=== PATIENT | female | born 1965 | race Caucasian/White ===

== ENCOUNTER 2016-11-17 08:40 | Emergency (ER) | payer BC ==
[2016-11-17 09:03] VITALS: BP 116/82
--- NOTE | 2016-11-17 09:43 | UC ---
Throat Pain/Nasal Lan HPI - HPI Summary HPI Summary: FIVE DAYS OF COUGH, CONGESTION, SORE THROAT, FACIAL PRESSURE. - History of Current Complaint Chief Complaint: UCRespiratory Stated Complaint: CHEST CONGESTION COUGH SORE THROAT Time Seen by Provider: 11/17/16 09:03 Hx Obtained From: Patient Hx Last Menstrual Period: does have r/t bcp Onset/Duration: Gradual Onset, Lasting Weeks, Still Present Severity: Moderate Cough: Nonproductive Associated Signs & Symptoms: Positive: Hoarseness, Sinus Discomfort, Nasal Discharge - Epiglottits Risk Factors Epiglottis Risk Factors: Negative - Allergies/Home Medications Allergies/Adverse Reactions: Allergies Allergy/AdvReac Type Severity Reaction Status Date / Time Penicillins Allergy Hives Verified 01/04/16 10:26 PMH/Surg Hx/FS Hx/Imm Hx Previously Healthy: Yes Endocrine History Of: Denies: Diabetes, Thyroid Disease Cardiovascular History Of: Denies: Cardiac Disorders, Hypertension Respiratory History Of: Denies: COPD, Asthma GI/ History Of: Denies: Ulcer Cancer History Of: Denies: Breast Cancer - Surgical History Surgical History: Yes Surgery Procedure, Year, and Place: tubal - Family History Known Family History: Positive: None, Hypertension - Social History Occupation: Retired Lives: With Family Alcohol Use: None Substance Use Type: None Smoking Status (MU): Never Smoked Tobacco Review of Systems Constitutional: Negative Skin: Negative Eyes: Negative ENT: Ear Ache, Nasal Discharge Respiratory: Cough Cardiovascular: Negative Gastrointestinal: Negative Genitourinary: Negative Motor: Negative Neurovascular: Negative Musculoskeletal: Negative Neurological: Negative Psychological: Negative All Other Systems Reviewed And Are Negative: Yes Physical Exam Triage Information Reviewed: Yes Appearance: Well-Appearing, No Pain Distress, Well-Nourished Vital Signs: Initial Vital Signs Temp 98.9 F 11/17/16 08:58 Pulse 98 11/17/16 08:58 Resp 19 11/17/16 08:58 BP 116/82 11/17/16 08:58 Pulse Ox 100 11/17/16 08:58 Vital Signs Reviewed: Yes Eye Exam: Normal ENT: Positive: Hearing grossly normal, Pharynx normal, TM bulging, TM dull Dental Exam: Normal Neck exam: Normal Neck: Positive: Supple, Nontender, No Lymphadenopathy Respiratory Exam: Normal Respiratory: Positive: Chest non-tender, Lungs clear, Normal breath sounds, No respiratory distress, No accessory muscle use Cardiovascular Exam: Normal Cardiovascular: Positive: RRR, No Murmur Abdominal Exam: Normal Abdomen Description: Positive: Nontender, No Organomegaly Musculoskeletal Exam: Normal Neurological Exam: Normal Psychological Exam: Normal Psychological: Positive: Normal Response To Family Skin Exam: Normal Throat Pain/Nasal Course/Dx - Differential Dx/Diagnosis Differential Diagnosis/HQI/PQRI: Pharyngitis, Sinusitis, URI Provider Diagnoses: SINUSITIS Discharge - Discharge Plan Condition: Stable Disposition: HOME Prescriptions: Benzonatate CAP* [Tessalon CAP*] 100 mg PO TID PRN #15 cap PRN Reason: Cough DOXYcycline CAP(*) [DOXYcycline 100MG CAP(*)] 100 mg PO BID #20 cap Patient Education Materials: Sinusitis (ED) Referrals: Bertram Cleveland MD [Primary Care Provider] -
== END 2016-11-17 09:52 | disposition home or self-care (01) ==
LOC: UCEAST 08:40
DX: J32.9 Chronic sinusitis, unspecified (principal); Z88.0 Allergy status to penicillin
CPT/HCPCS: 99212; G0463

== ENCOUNTER 2017-04-09 16:34 | Emergency (ER) | payer BC ==
[2017-04-09] MEDS ORDERED: Acetaminophen TAB* 325 MG PO ONE (16:45)
[2017-04-09 16:47] VITALS: BP 155/96
[2017-04-09] MEDS ORDERED: NS 0.9% 1000 ML* 1,000 ML IV ONE (16:47)
--- NOTE | 2017-04-09 16:57 | UC ---
HPI Febrile Illness - HPI Summary HPI Summary: 51 year old female presents with high fever, severe neck pain, and chills. I will send her to the ER to rule out meningitis. - History of Current Complaint Chief Complaint: UCHeadache Time Seen by Provider: 04/09/17 16:42 - Allergy/Home Medications Allergies/Adverse Reactions: Allergies Allergy/AdvReac Type Severity Reaction Status Date / Time Penicillins Allergy Hives Verified 04/09/17 16:35 Home Medications: Home Medications DOXYcycline CAP(*) [DOXYcycline 100MG CAP(*)] 100 mg PO BID 04/09/17 [History Confirmed 04/09/17] PMH/Surg Hx/FS Hx/Imm Hx Endocrine/Hematology History: Denies: Hx Diabetes, Hx Thyroid Disease Cardiovascular History: Denies: Hx Hypertension Respiratory History: Denies: Hx Asthma, Hx Chronic Obstructive Pulmonary Disease (COPD) GI History: Denies: Hx Ulcer - Cancer History Hx Chemotherapy: No Hx Radiation Therapy: No - Surgical History Surgery Procedure, Year, and Place: tubal Infectious Disease History: No Infectious Disease History: Denies: Hx Clostridium Difficile, Hx Hepatitis, Hx Human Immunodeficiency Virus (HIV), History Other Infectious Disease, Traveled Outside the [place] in Last 30 Days - Family History Known Family History: Positive: None, Hypertension - Social History Alcohol Use: None Substance Use Type: Reports: None Smoking Status (MU): Never Smoked Tobacco Review of Systems Constitutional: Fever, Chills Skin: Negative Eyes: Negative ENT: Negative Respiratory: Negative Cardiovascular: Negative Gastrointestinal: Negative Genitourinary: Negative Motor: Negative Neurovascular: Negative Musculoskeletal: Negative Neurological: Negative Psychological: Negative All Other Systems Reviewed And Are Negative: Yes Physical Exam Triage Information Reviewed: Yes Appearance: Ill-Appearing, Pain Distress Vital Signs: Initial Vital Signs Temp 40.5 C 04/09/17 16:38 Pulse 108 04/09/17 16:38 Resp 20 04/09/17 16:38 BP 155/96 04/09/17 16:38 Pulse Ox 100 04/09/17 16:38 Vital Signs Reviewed: Yes Eye Exam: Normal ENT Exam: Normal Dental Exam: Normal Neck: Positive: Nuchal Rigidity, Tenderness @ Respiratory Exam: Normal Cardiovascular Exam: Normal Abdominal Exam: Normal Musculoskeletal Exam: Normal Neurological Exam: Normal Psychological Exam: Normal Skin Exam: Normal Course/Dx - Diagnoses Clinic Provider Diagnoses: FEVER. NECK PAIN. CHILLS Discharge - Discharge Plan Condition: Critical Disposition: TRANS HIGHER LVL OF CARE FAC Referrals: Bertram Cleveland MD [Primary Care Provider] -
== END 2017-04-09 17:05 | disposition short-term general hospital (02) ==
LOC: UCEAST 16:34
DX: R50.9 Fever, unspecified (principal); M54.2 Cervicalgia; R68.83 Chills (without fever)
CPT/HCPCS: 96360; 99213; A9270-GY; G0463

== ENCOUNTER 2017-04-09 17:22 | Emergency (ER) | payer BC ==
[2017-04-09] MEDS ORDERED: NS 0.9% 1000 ML* 1,000 ML IV ONE (19:23)
[2017-04-09] MEDS ORDERED: Ketorolac INJ* 30 MG/ML 1 ML VIAL IV PUSH ONE (19:25)
[2017-04-09 19:50] LABS: Hematocrit 38 % (35-47); Hemoglobin 13.1 g/dl (12.0-16.0); Mean Corpuscular HGB Conc 34 g/dl (31-36); Mean Corpuscular Hemoglobin 31 pg (27-31); Mean Corpuscular Volume 90 fL (80-97); Mean Platelet Volume 9 um3 (7.4-10.4); Red Blood Count 4.27 10^6/ul (4.0-5.4); Red Cell Distribution Width 12 % (10.5-15); White Blood Count 6.1 10^3/ul (3.5-10.8)
[2017-04-09 20:06] LABS: Albumin 3.6 g/dL (3.2-5.2); BUN/Creatinine Ratio 15.1 (8-20); Calcium 8.7 mg/dL (8.6-10.3); EGFR African American 89.5 (>60); EGFR Non-African American 69.6 (>60); Globulin 2.9 g/dL (2-4); Magnesium 1.8 mg/dL (1.9-2.7); Potassium 3.8 mmol/L (3.5-5.0); Total Bilirubin 0.5 mg/dL (0.2-1.0); Total Protein 6.5 g/dL (6.4-8.9)
--- NOTE | 2017-04-09 20:12 | ED ---
Quinn Zapata Rebecca, scribed for Rodríguez Starks MD on 04/09/17 at 1915 . Complex/Multi-Sys Presentation - HPI Summary HPI Summary: Pt is a 51 y/o F BIBA from [facility] c/o ROSSI, fever and neck and back pain. Sx began 2 days ago and have been constant since onset. Fever was 102.5 yesterday, at its highest. Pain is currently severe, ranked 9/10 and described as being in her joints. Sx aggravated by nothing, slightly alleviated by Ibuprofen (one dose earlier today). Pt was seen by her PCP yesterday who prescribed Doxycycline , of which she has taken 2 doses, for concerns over Lyme Disease. Reports possible tick exposure 2 days ago, stating there was "something on my toe and I flicked it off." - History Of Current Complaint Chief Complaint: EDGeneral Time Seen by Provider: 04/09/17 19:12 Hx Obtained From: Patient Onset/Duration: Lasting Days - 2 days, Still Present Timing: Constant Severity Initially: Severe Location: Pain At: - ROSSI, neck and back pain Aggravating Factor(s): Nothing Alleviating Factor(s): Ibuprofen Associated Signs And Symptoms: Positive: Fever - Allergies/Home Medications Allergies/Adverse Reactions: Allergies Allergy/AdvReac Type Severity Reaction Status Date / Time Penicillins Allergy Hives Verified 04/09/17 16:35 PMH/Surg Hx/FS Hx/Imm Hx Endocrine/Hematology History: Denies: Hx Diabetes, Hx Thyroid Disease Cardiovascular History: Denies: Hx Hypertension Respiratory History: Denies: Hx Asthma, Hx Chronic Obstructive Pulmonary Disease (COPD) GI History: Denies: Hx Ulcer - Cancer History Hx Chemotherapy: No Hx Radiation Therapy: No - Surgical History Surgery Procedure, Year, and Place: tubal Infectious Disease History: No Infectious Disease History: Denies: Hx Clostridium Difficile, Hx Hepatitis, Hx Human Immunodeficiency Virus (HIV), History Other Infectious Disease, Traveled Outside the [place] in Last 30 Days - Family History Known Family History: Positive: Hypertension - Social History Alcohol Use: None Substance Use Type: Reports: None Smoking Status (MU): Never Smoked Tobacco Review of Systems Positive: Fever Positive: Arthralgia - Back and neck pain Positive: Headache All Other Systems Reviewed And Are Negative: Yes Physical Exam Triage Information Reviewed: Yes Vital Signs On Initial Exam: Initial Vitals Temp Pulse Resp BP Pulse Ox 103.2 F 108 20 142/78 100 04/09/17 17:30 04/09/17 17:30 04/09/17 17:30 04/09/17 17:30 04/09/17 17:30 Vital Signs Reviewed: Yes Appearance: Positive: Well-Appearing, No Pain Distress Skin: Positive: Warm Head/Face: Positive: Normal Head/Face Inspection Eyes: Positive: MICHAEL ENT: Positive: Pharynx normal, TMs normal Neck: Positive: Supple, Nontender. Negative: Nuchal Rigidity Respiratory/Lung Sounds: Positive: Clear to Auscultation, Breath Sounds Present Cardiovascular: Positive: RRR. Negative: Murmur Abdomen Description: Positive: Nontender, Soft Bowel Sounds: Positive: Present Musculoskeletal: Positive: Strength/ROM Intact Neurological: Positive: Sensory/Motor Intact, Alert, Oriented to Person Place, Time, Normal Gait Psychiatric: Positive: Affect/Mood Appropriate - Josue Coma Scale Coma Scale Total: 15 Diagnostics - Vital Signs Vital Signs Temp Pulse Resp BP Pulse Ox 04/09/17 17:30 103.2 F 108 20 142/78 100 - Laboratory Lab Results: Lab Results 04/09/17 04/09/17 04/09/17 Range/Units 19:40 19:40 19:40 WBC 6.1 (3.5-10.8) 10^3/ul RBC 4.27 (4.0-5.4) 10^6/ul Hgb 13.1 (12.0-16.0) g/dl Hct 38 (35-47) % MCV 90 (80-97) fL MCH 31 (27-31) pg MCHC 34 (31-36) g/dl RDW 12 (10.5-15) % Plt Count 163 (150-450) 10^3/ul MPV 9 (7.4-10.4) um3 Neut % (Auto) 70.9 (38-83) % Lymph % (Auto) 19.5 L (25-47) % Toole % (Auto) 9.1 H (1-9) % Eos % (Auto) 0 (0-6) % Baso % (Auto) 0.5 (0-2) % Absolute Neuts (auto) 4.4 (1.5-7.7) 10^3/ul Absolute Lymphs (auto) 1.2 (1.0-4.8) 10^3/ul Absolute Monos (auto) 0.6 (0-0.8) 10^3/ul Absolute Eos (auto) 0 (0-0.6) 10^3/ul Absolute Basos (auto) 0 (0-0.2) 10^3/ul Absolute Nucleated RBC 0.01 10^3/ul Nucleated RBC % 0.1 Sodium 132 L (133-145) mmol/L Potassium 3.8 (3.5-5.0) mmol/L Chloride 102 (101-111) mmol/L Carbon Dioxide 23 (22-32) mmol/L Anion Gap 7 (2-11) mmol/L BUN 13 (6-24) mg/dL Creatinine 0.86 (0.51-0.95) mg/dL Est GFR ( Amer) 89.5 (>60) Est GFR (Non-Af Amer) 69.6 (>60) BUN/Creatinine Ratio 15.1 (8-20) Glucose 108 H (70-100) mg/dL Lactic Acid 1.2 (0.5-2.0) mmol/L Calcium 8.7 (8.6-10.3) mg/dL Magnesium 1.8 L (1.9-2.7) mg/dL Total Bilirubin 0.50 (0.2-1.0) mg/dL AST 41 H (13-39) U/L ALT 47 (7-52) U/L Alkaline Phosphatase 66 (34-104) U/L Total Protein 6.5 (6.4-8.9) g/dL Albumin 3.6 (3.2-5.2) g/dL Globulin 2.9 (2-4) g/dL Albumin/Globulin Ratio 1.2 (1-3) Result Diagrams: 04/09/17 19:40 04/09/17 19:40 Lab Statement: Any lab studies that have been ordered have been reviewed, and results considered in the medical decision making process. - EKG 1944 Cardiac Rate: NL - 95 bpm EKG Rhythm: Sinus Rhythm EKG Interpretation: Generalized low voltages Re-Evaluation - Re-Evaluation First Eval Re-Evaluation Time: 20:55 Change: Improved Comment: Discussed labs, UA and D/C plan. Complex Multi-Symp Course/Dx Assessment/Plan: Pt is a 51 y/o F BIBA from [facility] c/o ROSSI, fever and neck and back pain for 2 days. Fever was 102.5 yesterday, at its highest. Pain is currently severe, ranked 9/10 and described as being in her joints. Sx slightly alleviated by Ibuprofen (one dose earlier today). Pt was seen by her PCP yesterday who prescribed Doxycycline, of which she has taken 2 doses, for concerns over Lyme Disease. Reports possible tick exposure 2 days ago, stating there was "something on my toe and I flicked it off." EKG reveals no acute findings. UA reveals color: yellow, appearance: cloudy, protein: 1+, ketones: trace, RBC: 1+, squamous epithelial cells: present, bacteria: absent and negative for blood, nitrate, bilirubin and leukocyte esterase. She received Ns and Toradol IV in the course of the ED. Pt will be D/C to home with Dx of viral syndrome. She understands and agrees. Patient's medications reviewed this visit. - Diagnoses Provider Diagnoses: Viral syndrome Discharge - Discharge Plan Condition: Improved Disposition: HOME Patient Education Materials: Viral Syndrome (ED) Referrals: Bertram Cleveland MD [Primary Care Provider] - 3 Days The documentation as recorded by the Quinn portillo Rebecca accurately reflects the service I personally performed and the decisions made by me, Rodríguez Starks MD.
[2017-04-09 20:46] LABS: Urine Bacteria Absent (Absent); Urine Bilirubin Negative (Negative); Urine Glucose Negative (Negative); Urine Nitrite Negative (Negative)
[2017-04-09 21:14] VITALS: BP 119/68
== END 2017-04-09 21:12 | disposition home or self-care (01) ==
LOC: ED 17:22
DX: B34.9 Viral infection, unspecified (principal); R51 Headache; R50.9 Fever, unspecified; M54.9 Dorsalgia, unspecified
CPT/HCPCS: 36415; 80053; 81003; 81015; 83605; 83735; 85025; 86618; 93005; 96374; 99283; J1885

== ENCOUNTER 2017-09-15 12:57 | Day surgery (SDC) | payer BC ==
--- NOTE | 2017-09-12 19:56 | HP ---
HISTORY AND PHYSICAL: DATE OF ADMISSION/SURGERY: 09/15/17 DATE OF OFFICE VISIT: 09/12/17 ATTENDING PROVIDER: Lucinda Storey MD * (DICTATED BY JOSTIN NICE) HISTORY OF PRESENT ILLNESS: Ms. Aldana is a 51-year-old female who reports 3 months of right knee pain that is an 8/10. She started exercising in May to [employer] when she started experiencing clicking, catching, and locking along the medial joint line of her knee. The pain is increased with deep bending, side stepping, and pivoting. The pain is increased with prolonged standing. She tried some physical therapy as well as an injection into the knee joint. She has tried Tylenol and Advil as well. The patient was also tested positive in April for Lyme disease and underwent 2 weeks of Cipro. She had an allergic reaction to doxycycline. She states that the meloxicam helped to relieve the pain for the 2 weeks that she took it, but it is now back. PAST MEDICAL HISTORY: 1. Lyme disease. 2. Migraines. PAST SURGICAL HISTORY: 1. Tubal ligation. MEDICATIONS: 1. Amitriptyline hydrochloric acid 1 by mouth every night at bedtime. 2. Aviane 0.1/20 mg/mcg 1 by mouth every day. 3. Ibuprofen 200 mg 1 twice a day as needed. ALLERGIES: 1. PENICILLIN. 2. DOXYCYCLINE. FAMILY HISTORY: Father, still alive, history of stroke. 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 She lives with her spouse. No tobacco, alcohol, or recreational drug use. Normally very active, normally an independent ambulator. REVIEW OF SYSTEMS: General: The patient denies any fevers, chills, or night sweats. No known anesthesia problems. HEENT: The patient denies any headaches , lightheadedness, or syncopal episodes. Cardiothoracic: The patient denies any chest pain, heart palpitations, or edema. Pulmonary: The patient denies any shortness of breath with exertion, chronic cough, COPD. The patient denies any nausea, vomiting, diarrhea, or constipation. The patient denies any nocturia, urinary frequency, or urinary urgency. MSK: The patient admits to right knee pain. The patient denies any chronic or intermittent back pain. Neuro: The patient denies any paresthesias, numbness, seizure. Integument: The patient denies any abrasions, lesions, or rashes. PHYSICAL EXAMINATION GENERAL: The patient is alert and oriented x3 with appropriate mood and affect , appropriate dress and hygiene. Slightly antalgic gait, is favoring the right knee. HEENT: Normocephalic, atraumatic. Hearing and vision grossly intact. PULMONARY: Lungs are clear to auscultation bilaterally. No wheezes, rales, or rhonchi. CARDIO: Regular rate and rhythm. Normal S1 and S2. No appreciable S3 or S4. No murmurs, rubs, or gallops. MSK: Right lower extremity, Inspection of right lower extremity reveals no erythema, no ecchymosis. Skin is warm, dry, intact. Range of motion is 0 to 115 degrees of flexion with pain globally at both terminals. MCL stress testing at 30 degrees causes pain. MCL stress testing at 0 degrees causes no pain. Negative LCL stress testing. Negative anterior and posterior drawer test. Positive medial joint line tenderness to palpation. Negative lateral joint line tenderness to palpation. Positive patellofemoral tenderness to palpation. Neurovascularly intact distally with a 2+ dorsalis pedis pulse. IMAGING: MRI was obtained and reviewed. MRI from 09/05/17 was obtained and reviewed. There is a partial peripheral extrusion of the body of the medial meniscus, which leads me to believe that a meniscal tear may be present there. There is high-grade osteoarthritis and full-thickness degeneration of the medial joint compartment. ASSESSMENT: Right knee medial meniscus tear. PLAN: Right knee arthroscopic partial medial meniscectomy, possible chondroplasty, possible synovectomy to be done on 09/15/17. The patient will return in 10 to 14 days postoperatively for suture removal and followup. A prescription for Percocet 5/325 has been sent to the pharmacy record to be used for postoperative pain management. The risks, benefits, and complications of surgery were discussed with the patient today and she understood these. JOSTIN NICE [id number]/[facility] #: [id number] NAMRATA
[~2017-09-15 12:57] MED LIST: Buffered Lidocaine 0.9% SYRIN* 5 ML/SYR SYRINGE INTRADERM ONE; Famotidine IV* 10 MG/ML 2 ML (20 mg) IV ONE; Midazolam* 1 MG/ML 2 ML VIAL (2 MG) ONE; fentaNYL* 50 MCG/ML 2 ML VIAL (100 MCG VIAL) ONE
[2017-09-15] MEDS ORDERED: Clindamycin 900 MG IVPREMIX(* 900 MG/50 ML SDV IV ONE (13:07)
[2017-09-15] MEDS ORDERED: Buffered Lidocaine 0.9% SYRIN* 5 ML/SYR SYRINGE ONE (13:07)
[2017-09-15] MEDS ORDERED: Famotidine IV* 10 MG/ML 2 ML (20 mg) ONE (13:07)
[2017-09-15] MEDS ORDERED: methylPREDNISolone ACETATE 40* 40 MG/ML 1 ML VIAL ONE (13:19)
[2017-09-15] MEDS ORDERED: Bupivacaine 0.25% SDV* 30 ML ONE (13:19)
[2017-09-15] MEDS ORDERED: EPINEPHRINE 1 MG/ML 1 ML VIAL ONE (13:19)
[2017-09-15] MEDS ORDERED: Propofol* 10 MG/ML 20 ML BTL IV PUSH ONE (14:05)
[2017-09-15] MEDS ORDERED: Ketorolac INJ* 30 MG/ML 1 ML VIAL ONE (14:05)
[2017-09-15] MEDS ORDERED: Ondansetron INJ* 2 MG/ML VIAL ONE (14:05)
[2017-09-15] MEDS ORDERED: Lidocaine 2% PF * 5 ML VIAL ONE (14:05)
[2017-09-15] MEDS ORDERED: DiMENhydriNATE IV* 50 MG/ML VIAL ONE (14:05)
[2017-09-15] MEDS ORDERED: Dexamethasone IV* 4 MG/ML 1 ML (4 MG) ONE (14:05)
[2017-09-15] MEDS ORDERED: fentaNYL* 50 MCG/ML 2 ML VIAL (100 MCG VIAL) ONE (14:20)
[2017-09-15] MEDS ORDERED: DiMENhydriNATE IV* 50 MG/ML VIAL IV PUSH PRN (14:27)
[2017-09-15] MEDS ORDERED: oxyCODONE TAB* 5 MG TAB PO PRN (14:27)
[2017-09-15] MEDS ORDERED: HYDROmorphone INJ* 1 MG/ML CARPUJECT SYRINGE IV PRN (14:27)
[2017-09-15] MEDS ORDERED: Acetaminophen TAB* 325 MG PO PRN (14:27)
[2017-09-15] MEDS ORDERED: oxyCODONE TAB* 5 MG TAB ONE (15:17)
[2017-09-15] MEDS ORDERED: Acetaminophen TAB* 325 MG ONE (15:17)
[2017-09-15 15:58] VITALS: BP 142/73
--- NOTE | 2017-09-16 02:49 | OP ---
OPERATIVE REPORT: DATE OF OPERATION: 09/15/17 DATE OF : 65 SURGEON: Lucinda Storey MD REMOVABLE PROSTHODONTIST: JOSTIN San Ms. Hopkins did help throughout the procedure with preparation of the leg, wound retraction, manipul ation of the knee, and wound closure. ANESTHESIOLOGIST: Nadine Kaplan MD ANESTHESIA: General. PRE-OP DIAGNOSES: Right knee pain and medial meniscal tear. POST-OP DIAGNOSES: Right knee medial meniscal tear and osteoarthritis. OPERATIVE PROCEDURE: Right knee arthroscopy with partial medial meniscectomy and medial chondroplast y. INDICATIONS: Ms. Aldana is a 51- year-old female, who started exercising regularly in mid May and developed mechanical symptoms in her right knee. She developed symptoms consistent with a menisc al tear and severe pain. MRI confirmed a medial meniscal tear. Plain radiographs showed some mild d egenerative changes. The patient failed conservative treatment and elected to undergo right knee art hroscopy. She understood partial meniscectomy would not help her arthritic pain, but wished to proce ed due to continued pain and failure of conservative treatment. Informed consent was obtained from t he patient. She understood the risks of surgery, included but were not limited to, bleeding, infecti on, damage to nearby structures, continued pain, need for further surgery, retear of the meniscus, st roke, heart attack, blood clot, and . She wished to proceed. COMPLICATIONS: None. ESTIMATED BLOOD LOSS: Less than 25 cc. SPECIMEN: None. INTRAOPERATIVE FINDINGS: Intraoperatively, the patient was noted to have a linear- type tear involvi ng the posterior third of the medial meniscus. This did displace anteriorly. This involved the whit e-red zone. The patient was noted to have grade 3 Outerbridge cartilage changes in the patellofemora l compartment and grade 3 and 4 Outerbridge cartilage changes along the medial compartment of the kne e with exposed subchondral bone along the weightbearing portion of the medial femoral condyle. DESCRIPTION OF PROCEDURE: Ms. Aldana was identified in the preanesthesia unit. Informed consent was obtained from the patient. Right lower extremity was marked as the correct operative side. The sandee ent was taken to the operating room and placed under general anesthesia. Right lower extremity was p repped and draped in the usual sterile fashion. Preop time-out was made to correctly identify the pa tient's side and site. Appropriate perioperative antibiotics were given within 1 hour of incision. A 0.5-cm anterolateral portal incision was made with a 15 blade and carried down through the capsule. Trocar was introduced. As soon as the light and water sources were turned on, there was immediate visualization of the knee joint. A tour was performed. The suprapatellar pouch had no obvious abnor mality. Patellofemoral compartment showed grade 3 patellar cartilage fissuring and degeneration invol ving the medial and lateral patellar facet. The medial gutter showed no obvious loose body or plica. Medial compartment showed exposed subchondral bone along the medial femoral condyle with significan t loss of cartilage; this was grade 3 and 4 Outerbridge cartilage changes. Posterior medial meniscus appeared to have a tear with anteriorly displaced flap. ACL and PCL were intact. Knee was placed i n the figure-of-4 position. No significant degenerative changes in the lateral compartment. No obvi ous meniscal tear. Lateral gutter showed no obvious abnormality. Under direct visualization, a medial portal incision was made. Shaver and radiofrequency ablation wa nd were used to excise some inflammatory tissue along the anterior joint line. The probe was introdu heladio and a second tour of the knee joint was performed. No additional findings were noted. Medial me niscal tear was a linear-type tear involving the white-red zone. This involved the posterior one- th ird of the meniscus. This tear did displace anteriorly. Straight biter and shaver were used to perf orm partial medial meniscectomy mainly in the white-red zone. Radiofrequency ablation wand was then used to smooth the edge of the meniscus. Some cartilage flap was carefully smoothed with the radiofr equency ablation wand along the medial femoral condyle. The knee was copiously irrigated with sterile saline. Instruments were all carefully removed. The i ncisions were closed using interrupted 3-0 nylon suture. Intraarticular injection of 80 mg of Depo-Me drol and 6 cc of 0.25% Marcaine was placed in the knee joint. The patient's incisions were covered w ith Xeroform, 4x4s, and Webril. Emir wrap and cold pack were placed over this. The patient's anesthe adan was reversed without difficulty. She was taken to the PACU in stable condition. Intended weight bearing will be weightbearing as tolerated. Intended DVT prophylaxis will be aspirin for 2 weeks. T he patient will follow up in clinic in 2 weeks' time. [id number]/[facility] #: [id number]
== END 2017-09-15 16:25 | disposition home or self-care (01) ==
LOC: OR 12:57
PROVIDERS: ATTEND Orthopaedic Surgery Adult Reconstructive Orthopaedic Surgery
DX: S83.241A Other tear of medial meniscus, current injury, right knee, initial encounter (principal); M17.11 Unilateral primary osteoarthritis, right knee; Z88.0 Allergy status to penicillin; Z88.8 Allergy status to other drugs, medicaments and biological substances; X58.XXXA Exposure to other specified factors, initial encounter
CPT/HCPCS: 81025; A9270-GY; J1030; J1100; J1240; J1885; J2250; J2405; J2704; J3010

== ENCOUNTER 2018-12-08 07:21 | Emergency (ER) | payer BC ==
[2018-12-08 07:44] VITALS: BP 129/84
--- NOTE | 2018-12-08 09:20 | UC ---
Ear Complaint HPI - HPI Summary HPI Summary: HAS HAD LEFT EAR PAIN FOR A FEW WEEKS, YESTERDAY RIGHT EAR STARTED TO HURT. NO FEVER OR URI SX. NO HEARING LOSS OR DISCHARGE FROM THE EAR. - History of Current Complaint Chief Complaint: UCEar Stated Complaint: EAR PAIN Time Seen by Provider: 12/08/18 08:39 Hx Obtained From: Patient Hx Last Menstrual Period: heel shaper Onset/Duration: Gradual Onset, Lasting Weeks, Still Present Severity Initially: Moderate Severity Currently: Moderate Pain Intensity: 3 Pain Scale Used: 0-10 Numeric Aggravating Factors: Nothing Alleviating Factors: Nothing Associated Signs/Symptoms: Negative: Discharge, Hearing Loss, URI Symptoms - Allergies/Home Medications Allergies/Adverse Reactions: Allergies Allergy/AdvReac Type Severity Reaction Status Date / Time amoxicillin [From Augmentin] Allergy Hives Verified 12/08/18 07:46 clavulanic acid Allergy Hives Verified 12/08/18 07:46 [From Augmentin] doxycycline Allergy Fever Verified 12/08/18 07:46 Penicillins Allergy Hives Verified 12/08/18 07:46 PMH/Surg Hx/FS Hx/Imm Hx Previously Healthy: Yes - Surgical History Surgical History: Yes Surgery Procedure, Year, and Place: tubal CONN 1993. Rt knee 2016 - Family History Known Family History: Positive: Hypertension - Social History Alcohol Use: None Substance Use Type: None Smoking Status (MU): Never Smoked Tobacco Review of Systems All Other Systems Reviewed And Are Negative: Yes Constitutional: Positive: Negative Eyes: Positive: Negative ENT: Positive: Ear Ache Respiratory: Positive: Negative Cardiovascular: Positive: Negative Gastrointestinal: Positive: Negative Physical Exam Triage Information Reviewed: Yes Appearance: Well-Appearing, No Pain Distress, Well-Nourished Vital Signs: Initial Vital Signs Temp 98.8 F 12/08/18 07:39 Pulse 88 12/08/18 07:39 Resp 16 12/08/18 07:39 BP 129/84 12/08/18 07:39 Pulse Ox 100 12/08/18 07:39 Vital Signs Reviewed: Yes Eyes: Positive: Conjunctiva Clear ENT: Positive: Hearing grossly normal, Pharynx normal, TMs normal Neck: Positive: Supple, Nontender, No Lymphadenopathy Respiratory Exam: Normal Cardiovascular Exam: Normal Abdomen Description: Positive: Soft Musculoskeletal: Positive: No Edema Neurological: Positive: Alert Psychological: Positive: Age Appropriate Behavior Skin: Negative: Rashes Ear Complaint Course/Dx - Differential Dx/Diagnosis Provider Diagnosis: Acute pain of both ears Discharge - Sign-Out/Discharge Documenting (check all that apply): Patient Departure All imaging exams completed and their final reports reviewed: No Studies - Discharge Plan Condition: Stable Disposition: HOME Patient Education Materials: Earache (ED) Referrals: Bertram Cleveland MD [Primary Care Provider] - If Needed Additional Instructions: EAR PAIN, NON-SPECIFIC There are many causes of ear pain in adults. Pain that's felt in the ear can actually be coming from somewhere nearby. This is called "referred pain." Problems in the teeth, throat, or jaw joint (TMJ) often cause ear pain. Sometimes the physical exam or medical history suggests a treatable cause. If not, we may wait for the pain to go away. New symptoms may offer a clue to the cause of the pain. Report any changes to your care provider. These are some conditions that can cause ear pain, but may not be obvious from physical examination: Eardrum injury Pressure changes (barotrauma) due to swimming or shock waves Mild trauma such as Q-tip injury or finger-picking the outer ear Mild outer ear infection (swimmer's ear) Low-grade or chronic middle ear infection Mastoiditis (infection in the bone behind the ear) TMJ syndrome or arthritis of the jaw Pressure from hard earwax Tooth infection Infected tonsil Sinus infection Nerve disease such as Ramirez's Palsy Follow your care provider's treatment recommendations. Let the ear rest. Don't insert cotton swabs, dig at the ear with your finger, or force your ears to "pop." If you're not improving after a few days, or if new symptoms arise, see the doctor. Watch for: Decreased hearing Spreading pain or headache Drainage or bleeding from the ear Fever Weakness of the face muscles Other new symptoms UNCLEAR ETIOLOGY OF YOUR EAR DISCOMFORT. FOLLOW-UP WITH ENT IF YOUR SYMPTOMS DO NOT IMPROVE. [facility] IN [place] [address] [facility] [phone] - Billing Disposition and Condition Condition: STABLE Disposition: Home
== END 2018-12-08 08:58 | disposition home or self-care (01) ==
LOC: UCEAST 07:21
DX: H92.03 Otalgia, bilateral (principal); Z88.1 Allergy status to other antibiotic agents; Z88.0 Allergy status to penicillin
CPT/HCPCS: 99211; G0463